=== PATIENT | female | born 1985 | race Two or more races ===

== ENCOUNTER 2021-11-10 19:28 | Emergency (ER) | payer MEDICAID ==
[2021-11-10 20:52] VITALS: BP 130/82
[2021-11-10] MEDS ORDERED: TRAM-297 PO (21:33)
== END 2021-11-10 23:05 | disposition home or self-care (01) ==
LOC: ER 19:28
DX: M79.10 Myalgia, unspecified site (principal); G43.909 Migraine, unspecified, not intractable, without status migrainosus; Z79.899 Other long term (current) drug therapy
CPT/HCPCS: 72080; 93005

== ENCOUNTER 2022-12-16 16:31 | Emergency (ER) | payer MEDICAID ==
[~2022-12-16] VITALS: Ht 165.1 cm; Wt 66.0 kg
[~2022-12-16 16:31] MED LIST: TRAM-297 PO
[2022-12-16] MEDS ORDERED: LIDOCAINE 1% HCL (LOCAL ANESTH.) INJ 20ML MDV ID ONE (16:45)
[2022-12-16] MEDS ORDERED: CEPHALEXIN 250 MG CAP PO ONE (16:45)
[2022-12-16] MEDS ORDERED: IBUPROFEN 800 MG TAB PO ONE (16:45)
[2022-12-16] MEDS ORDERED: TETANUS-DIPTH-ACEL PERTUSSIS 0.5ML SYR Tdap IM ONE (16:45)
[2022-12-16 16:49] VITALS: BP 157/86; PULSE 91; RESP 20; TEMP 97.9; O2SAT 100
[2022-12-16] MEDS ORDERED: HYDROcodone-ACET 5/325MG TAB PO ONE (17:00)
[2022-12-16] MEDS ORDERED: CEPH500C PO (17:02)
[2022-12-16] MEDS ORDERED: IBUP-1454 PO (17:02)
[2022-12-16] MEDS ORDERED: MUPI2OIN2 EX (17:02)
== END 2022-12-16 16:40 | disposition home or self-care (01) ==
LOC: ER 16:31
DX: S61.214A Laceration without foreign body of right ring finger without damage to nail, initial encounter (principal); S61.216A Laceration without foreign body of right little finger without damage to nail, initial encounter; Z98.890 Other specified postprocedural states; X58.XXXA Exposure to other specified factors, initial encounter; Y93.89 Activity, other specified; Y92.89 Other specified places as the place of occurrence of the external cause; Y99.8 Other external cause status
CPT/HCPCS: 12001; 90471; 90715; 99284; J2001; 96372